=== PATIENT | male | born 1965 | race American Indian/Alaskan Native ===

== ENCOUNTER 2018-09-13 08:12 | Emergency (ER) | payer OTHER ==
[2018-09-13 08:27] VITALS: BP 194/116
[2018-09-13] MEDS ORDERED: Sodium Chloride 0.9% 10 ML Syringe FLUSH PRN (08:33)
--- NOTE | 2018-09-13 08:33 | EDM.PDOC ---
ED HPI GENERAL MEDICAL PROBLEM - General Chief Complaint: Chest Pain Stated Complaint: BAD CHEST PAIN,HARD TO BREATHE [id number] Time Seen by Provider: 09/13/18 08:30 Source of Information: Reports: Patient - History of Present Illness INITIAL COMMENTS - FREE TEXT/NARRATIVE: Patient comes emergency department today with complaints of right anterior chest pain. He reports since last night he has had a sharp shooting stabbing intermittent chest pain on the right midclavicular lower costal margin. He has not had any trauma or injury. His pain gets worse with deep breath cough and movement. He has not had a cough no congestion. No fever no chills. He has had heartburn in the past but does not feel like this. He is a smoker. He has no abdominal pain. No nausea no vomiting. No diaphoresis. No pain into his back. No pain into his jaw neck or arm. No diaphoresis. No shortness of breath. No fever no chills. No black or tarry stools. He does drink alcohol on a regular basis he has no history of pancreatitis. No weakness dizziness lightheadedness. No palpitations. Left Chest Pain Score (Numeric/FACES): 7 - Related Data Allergies Allergy/AdvReac Type Severity Reaction Status Date / Time No Known Allergies Allergy Verified 09/13/18 08:23 Home Meds: Home Meds Aspirin 325 mg PO DAILY 10/31/14 [History] Fenofibrate Nanocrystallized [Fenofibrate] 160 mg PO DAILY 10/31/14 [History] Multivitamin [Multi Vitamin Daily] 1 tab PO DAILY 10/31/14 [History] Rosuvastatin [Crestor] 40 mg PO DAILY 10/31/14 [History] Cholecalciferol (Vitamin D3) [Vitamin D3] 1,000 unit PO DAILY 09/13/18 [History] Losartan [Cozaar] 100 mg PO DAILY 09/13/18 [History] Past Medical History HEENT History: Reports: None Cardiovascular History: Reports: High Cholesterol, Hypertension Respiratory History: Reports: None Gastrointestinal History: Reports: None Genitourinary History: Reports: None Musculoskeletal History: Reports: None Neurological History: Reports: None Psychiatric History: Reports: None Endocrine/Metabolic History: Reports: None Hematologic History: Reports: None Immunologic History: Reports: None Oncologic (Cancer) History: Reports: None Dermatologic History: Reports: None - Infectious Disease History Infectious Disease History: Reports: None - Past Surgical History Head Surgeries/Procedures: Reports: None Social & Family History - Family History Family Medical History: Noncontributory - Tobacco Use Smoking Status *Q: Current Every Day Smoker Years of Tobacco use: 32 Packs/Tins Daily: 1 - Caffeine Use Caffeine Use: Reports: Coffee, Soda - Alcohol Use Days Per Week of Alcohol Use: 3 Number of Drinks Per Day: 1 Total Drinks Per Week: 3 - Recreational Drug Use Recreational Drug Use: No ED ROS GENERAL - Review of Systems Review Of Systems: ROS reveals no pertinent complaints other than HPI. ED EXAM, GENERAL - Physical Exam Exam: See Below Exam Limited By: No Limitations General Appearance: Alert, WD/WN, Anxious Eye Exam: Bilateral Eye: Normal Inspection Ears: Normal External Exam, Normal TMs Ear Exam: Right Ear: Other Nose: Normal Inspection Throat/Mouth: Normal Inspection, Normal Lips, Normal Teeth, Normal Oropharynx, Normal Voice, No Airway Compromise Head: Atraumatic, Normocephalic Neck: Normal Inspection, Supple, Non-Tender Respiratory/Chest: No Respiratory Distress, Lungs Clear, Normal Breath Sounds, No Accessory Muscle Use, Other (Tenderness along the right midclavicular lower costal margin no bruising swelling ecchymosis and I can reproduce the pain with palpation that brought him into the ED. ). No: Chest Non-Tender Cardiovascular: Normal Peripheral Pulses, Regular Rate, Rhythm, No Edema, No Murmur, No Rub Peripheral Pulses: 2+: Radial (L), Radial (R), Posterior Tibial (L), Posterior Tibial (R), Dorsalis Pedis (L), Dorsalis Pedis (R) GI/Abdominal: Normal Bowel Sounds, Soft, Non-Tender, No Organomegaly, No Abnormal Bruit Back Exam: Normal Inspection, Full Range of Motion Extremities: Normal Inspection, Normal Range of Motion, Non-Tender, No Pedal Edema, Normal Capillary Refill Neurological: Alert, Oriented, CN II-XII Intact, No Motor/Sensory Deficits Psychiatric: Normal Affect, Normal Mood Skin Exam: Warm, Dry, Intact, Normal Color, No Rash Lymphatic: No Adenopathy EKG INTERPRETATION EKG Date: 09/13/18 Time: 08:23 Rhythm: NSR Rate (Beats/Min): 53 [place]: Normal P-Wave: Present QRS: Normal ST-T: Normal QT: Normal Course - Vital Signs Last Recorded V/S: Last Vital Signs Temp 36.1 C 09/13/18 08:23 Pulse 90 09/13/18 08:23 Resp 18 09/13/18 08:23 BP 194/116 H 09/13/18 08:23 Pulse Ox 98 09/13/18 08:23 - Orders/Labs/Meds Orders: Active Orders 24 hr Category Date Time Status EKG 12 Lead [EKG Documentation Completion] [] URGENT Care 09/13/18 08:33 Active Peripheral IV Care [RC] . DIRECTED Care 09/13/18 08:33 Active Sodium Chloride 0.9% [Saline Flush] Med 09/13/18 08:33 Active 10 ml FLUSH ASDIRECTED PRN Peripheral IV Insertion Adult [OM.PC] Stat Oth 09/13/18 08:33 Ordered Medication Orders Sodium Chloride (Saline Flush) 10 ml FLUSH ASDIRECTED PRN PRN Reason: Keep Vein Open Last Admin: 09/13/18 08:47 Dose: 10 ml Labs: Laboratory Tests 09/13/18 09/13/18 09/13/18 Range/Units 08:32 08:32 08:32 WBC 5.7 (5.0-10.0) 10^3/uL RBC 4.75 (4.6-6.2) 10^6/uL Hgb 15.1 (14.0-18.0) g/dL Hct 44.9 (40.0-54.0) % MCV 94.5 (80-100) fL MCH 31.8 (27.0-34.0) pg MCHC 33.6 (33.0-35.0) g/dL Plt Count 271 (150-450) 10^3/uL Neut % (Auto) 49.2 (42.2-75.2) % Lymph % (Auto) 33.2 (20.5-50.1) % [place] % (Auto) 11.2 H (2-8) % Eos % (Auto) 5.4 H (1.0-3.0) % Baso % (Auto) 1.0 (0.0-1.0) % Sodium 135 (135-145) mmol/L Potassium 4.1 (3.6-5.0) mmol/L Chloride 103 (101-111) mmol/L Carbon Dioxide 21.0 (21.0-31.0) mmol/L Anion Gap 15.1 BUN 14 (7-18) mg/dL Creatinine 0.9 (0.6-1.3) mg/dL Est Cr Clr Drug Dosing 98.01 mL/min Estimated GFR (MDRD) > 60 BUN/Creatinine Ratio 15.55 Glucose 113 H (74-105) mg/dL Calcium 9.1 (8.4-10.2) mg/dl Total Bilirubin 0.7 (0.2-1.0) mg/dL AST 59 H (10-42) IU/L ALT 75 H (10-60) IU/L Alkaline Phosphatase 69 (42-121) IU/L Troponin I < 0.02 (0.00-0.02) ng/ml C-Reactive Protein 1.7 H (0.0-1.3) mg/dL Total Protein 7.5 (6.7-8.2) g/dl Albumin 4.1 (3.2-5.5) g/dl Globulin 3.4 Albumin/Globulin Ratio 1.21 Lipase 33 (22-51) U/L Ethyl Alcohol mg/dL 09/13/18 Range/Units 08:32 WBC (5.0-10.0) 10^3/uL RBC (4.6-6.2) 10^6/uL Hgb (14.0-18.0) g/dL Hct (40.0-54.0) % MCV (80-100) fL MCH (27.0-34.0) pg MCHC (33.0-35.0) g/dL Plt Count (150-450) 10^3/uL Neut % (Auto) (42.2-75.2) % Lymph % (Auto) (20.5-50.1) % [place] % (Auto) (2-8) % Eos % (Auto) (1.0-3.0) % Baso % (Auto) (0.0-1.0) % Sodium (135-145) mmol/L Potassium (3.6-5.0) mmol/L Chloride (101-111) mmol/L Carbon Dioxide (21.0-31.0) mmol/L Anion Gap BUN (7-18) mg/dL Creatinine (0.6-1.3) mg/dL Est Cr Clr Drug Dosing mL/min Estimated GFR (MDRD) BUN/Creatinine Ratio Glucose (74-105) mg/dL Calcium (8.4-10.2) mg/dl Total Bilirubin (0.2-1.0) mg/dL AST (10-42) IU/L ALT (10-60) IU/L Alkaline Phosphatase (42-121) IU/L Troponin I (0.00-0.02) ng/ml C-Reactive Protein (0.0-1.3) mg/dL Total Protein (6.7-8.2) g/dl Albumin (3.2-5.5) g/dl Globulin Albumin/Globulin Ratio Lipase (22-51) U/L Ethyl Alcohol 14 mg/dL Meds: Medications Generic Name Dose Route Start Last Admin Trade Name Freq PRN Reason Stop Dose Admin Sodium Chloride 10 ml 09/13/18 08:33 09/13/18 08:47 Saline Flush FLUSH 10 ml ASDIRECTED PRN Administration Keep Vein Open Discontinued Medications Generic Name Dose Route Start Last Admin Trade Name Freq PRN Reason Stop Dose Admin Ketorolac Tromethamine 30 mg 09/13/18 08:39 09/13/18 08:47 Toradol IVPUSH 09/13/18 08:40 30 mg ONETIME ONE Administration - Re-Assessments/Exams Free Text/Narrative Re-Assessment/Exam: 09/13/18 09:38 Patient was given IV Toradol with improvement of his pain. His chest x-ray EKG and laboratory evaluation is rather unremarkable for any cardiac concerns. He does have some mildly elevated liver enzymes within normal limits of bilirubin. He does report that he has been drinking alcohol quite heavily over the past couple of days as it is his son's birthday. Did explain to him that his liver enzymes are starting to elevate and he should abstain from alcohol usage to prevent further damage. His blood pressure initially was quite elevated but did improve on its own and is still minimally elevated while in the emergency department. They be due to some concerns of alcohol withdrawal or needs better management per primary care. Will follow up with primary care to recheck his blood pressure. The exam is concerning for chest wall pain I'm unsure if during his escapades drinking if he injured himself or if he has a pulled muscle. His cardiac workup once again is negative. We will discharge him home with symptomatic management and he was comfortable with this plan. Departure - Departure Time of Disposition: 09:35 Disposition: Home, Self-Care 01 Clinical Impression: Chest pain, musculoskeletal, Elevated liver enzymes Hypertension Qualifiers: Hypertension type: unspecified Qualified Code(s): I10 - Essential (primary) hypertension Instructions: Nonspecific Chest Pain, [id number], Hypertension, Chest Wall Pain, [id number] Forms: ED Department Discharge Additional Instructions: Lots of fluids over the next few days. Abstain from alcohol usage. Ibuprofen or NSAIDs as needed for the chest wall pain. Recheck blood pressure with PCP in the next week Return to the ED if new or worsening symptoms. - My Orders Last 24 Hours: My Active Orders 09/13/18 08:33 EKG 12 Lead [EKG Documentation Completion] [RC] URGENT Peripheral IV Care [RC] . DIRECTED Sodium Chloride 0.9% [Saline Flush] 10 ml FLUSH ASDIRECTED PRN Peripheral IV Insertion Adult [OM.PC] Stat - Assessment/Plan Last 24 Hours: My Active Orders 09/13/18 08:33 EKG 12 Lead [EKG Documentation Completion] [RC] URGENT Peripheral IV Care [RC] . DIRECTED Sodium Chloride 0.9% [Saline Flush] 10 ml FLUSH ASDIRECTED PRN Peripheral IV Insertion Adult [OM.PC] Stat Assessment:: Chest wall pain Elevated liver enzymes alcoholism hypertension. Plan: Lots of fluids over the next few days. Abstain from alcohol usage. Ibuprofen or NSAIDs as needed for the chest wall pain. Recheck blood pressure with PCP in the next week Return to the ED if new or worsening symptoms.
[2018-09-13] MEDS ORDERED: Ketorolac 30 MG/ML SDV IVPUSH ONE (08:39)
--- NOTE | 2018-09-13 08:58 | CR ---
Clinical history: 53-year-old male with chest pain and shortness of breath (emergency department). 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 No lung mass, hilar lymphadenopathy or new focal lobar pneumonia since CT exam March 2018. No atelectasis/collapse. No pneumothorax or free subdiaphragmatic air. CONCLUSION: No acute new cardiopulmonary abnormality.
[2018-09-13 09:03] LABS: ANION GAP 15.1; CHLORIDE,CL 103 mmol/L (101-111); SODIUM,NA 135 mmol/L (135-145)
== END 2018-09-13 09:45 | disposition home or self-care (01) ==
LOC: DL.ED 08:12
DX: R07.89 Other chest pain (principal); I10 Essential (primary) hypertension; R74.8 Abnormal levels of other serum enzymes; F17.210 Nicotine dependence, cigarettes, uncomplicated; F10.20 Alcohol dependence, uncomplicated; Y90.0 Blood alcohol level of less than 20 mg/100 ml; Z79.82 Long term (current) use of aspirin
CPT/HCPCS: 36415; 71046; 80053; 83690; 84484; 85025; 86140; 93005; 96374; 99285; G0480; J1885

== ENCOUNTER 2025-04-20 05:26 | Day surgery (SDC) | payer MEDICAID, OTHER ==
[2025-04-20] MEDS ORDERED: Propofol 200 MG/20 ML SDV IV ONE (05:27)
[2025-04-20] MEDS ORDERED: Lactated Ringers 1,000 ML IV ONE (05:27)
[2025-04-20] MEDS ORDERED: Propofol 200 MG/20 ML SDV ONE (05:42)
[2025-04-20] MEDS: Lactated Ringers 1,000 ML IV SCH (06:15)
[2025-04-20 08:50] VITALS: BP 129/79; PULSE 62
== END 2025-04-20 08:03 | disposition home or self-care (01) ==
LOC: DL.ENDO 05:26
PROVIDERS: ATTEND Internal Medicine Gastroenterology
DX: Z12.11 Encounter for screening for malignant neoplasm of colon (principal); K63.5 Polyp of colon; K57.30 Diverticulosis of large intestine without perforation or abscess without bleeding; I10 Essential (primary) hypertension; E78.5 Hyperlipidemia, unspecified; F17.210 Nicotine dependence, cigarettes, uncomplicated; E11.9 Type 2 diabetes mellitus without complications; Z79.899 Other long term (current) drug therapy
CPT/HCPCS: 00811; 45385; J2003; J2704; J7120

== ENCOUNTER 2025-05-16 05:53 | Day surgery (SDC) | payer MEDICAID ==
[2025-05-16] MEDS ORDERED: Propofol 200 MG/20 ML SDV IV ONE (05:54)
[2025-05-16] MEDS ORDERED: Lactated Ringers 1,000 ML IV ONE (05:54)
[2025-05-16] MEDS ORDERED: Benzocaine 20% Topical Spray UD MUCMEM ONE (05:54)
[2025-05-16] MEDS: Lactated Ringers 1,000 ML IV SCH (06:22)
[2025-05-16] MEDS ORDERED: Propofol 200 MG/20 ML SDV ONE (06:58)
[2025-05-16] MEDS ORDERED: Benzocaine 20% Topical Spray UD ONE ×2 (07:04→07:09)
[2025-05-16 08:36] VITALS: BP 140/80; PULSE 55
== END 2025-05-16 08:47 | disposition home or self-care (01) ==
LOC: DL.ENDO 05:53
PROVIDERS: ATTEND Internal Medicine Gastroenterology
DX: K29.50 Unspecified chronic gastritis without bleeding (principal); B96.81 Helicobacter pylori [H. pylori] as the cause of diseases classified elsewhere; K31.89 Other diseases of stomach and duodenum; K25.9 Gastric ulcer, unspecified as acute or chronic, without hemorrhage or perforation; I10 Essential (primary) hypertension; Z79.899 Other long term (current) drug therapy
CPT/HCPCS: 43239; A9270; J2704; J7120; 00731

== ENCOUNTER 2025-07-15 13:56 | Emergency (ER) | payer OTHER, MEDICAID ==
[2025-07-15] MEDS: Bacitracin Oint 1 GM U/D Packet TOP ONE (14:51)
[2025-07-15 14:53] VITALS: BP 177/98; PULSE 88
== END 2025-07-15 15:09 | disposition home or self-care (01) ==
LOC: DL.ED 13:56
DX: S61.211A Laceration without foreign body of left index finger without damage to nail, initial encounter (principal); I10 Essential (primary) hypertension; E78.00 Pure hypercholesterolemia, unspecified; Z79.899 Other long term (current) drug therapy; W31.2XXA Contact with powered woodworking and forming machines, initial encounter; Y93.89 Activity, other specified
CPT/HCPCS: 12001; 73120; 99283; A9270; J2003